=== PATIENT | female | born 1955 | race Two or more races ===

== ENCOUNTER 2017-08-08 08:34 | Outpatient (CLI) | payer OTHER | END 2017-08-08 08:40 | disposition home or self-care (01) | LOC: SONOGRAMA 08:34 | DX: E04.2 Nontoxic multinodular goiter (principal) ==

== ENCOUNTER 2018-01-27 10:54 | Outpatient (CLI) | payer OTHER | END 2018-01-27 10:56 | disposition home or self-care (01) | LOC: SONOGRAMA 10:54 → MAMO-SONO 11:15 | DX: E04.1 Nontoxic single thyroid nodule (principal) ==